=== PATIENT | male | born 1980 | race Caucasian/White ===

== ENCOUNTER → 2024-09-02 08:39 | Outpatient (BNVA) | payer BC, MEDICAID, SELFPAY | PROVIDERS: PCP Family Medicine; Visit Provider Family Medicine | DX: Z13.6 Encounter for screening for cardiovascular disorders (principal) | CPT/HCPCS: 80053; 80061; 84443; 85025 ==

== ENCOUNTER 2024-09-09 07:03 | Outpatient (CLI) | payer BC, MEDICAID, SELFPAY ==
--- NOTE | 2024-09-09 07:30 | US_ITS ---
WS: [id number] ULTRASOUND SOFT TISSUES RIGHT flank. HISTORY: cyst on right flank COMPARISON: CT 04/23/2017 TECHNIQUE: 2-D and color Doppler imaging is submitted. Palpable area along the posterior RIGHT flank at the level of the kidney. Ultrasound directed to the area indicated by the patient. There is a mixed intermediate density mass which is pretty well defined. Mass does appear encapsulated and is isoechoic to the adjacent muscles. Mass measures 7.4 x 6.8 x 4.6 cm. No significant increased vascularity. US/US soft tissue/extremity [id number] IMPRESSION: Well encapsulated mass along the posterior RIGHT flank. This is most consistent with a lipoma. Prior CT from 04/23/2017 demonstrated a lipoma posteriorly in a similar location. Maximum diameter of the lipoma at that time was 5.9 cm. Lipo ma has slightly increased in size.
== END 2024-09-09 07:04 | disposition home or self-care (01) ==
LOC: RAD 07:05
PROVIDERS: PCP Family Medicine; Visit Provider Family Medicine
DX: L72.9 Follicular cyst of the skin and subcutaneous tissue, unspecified (principal); R79.89 Other specified abnormal findings of blood chemistry; R22.2 Localized swelling, mass and lump, trunk
CPT/HCPCS: 76882; 80074; 87522

== ENCOUNTER → 2024-09-23 13:31 | Outpatient (BNVA) | payer BC, MEDICAID, SELFPAY | PROVIDERS: PCP Family Medicine; Visit Provider Family Medicine | DX: B19.20 Unspecified viral hepatitis C without hepatic coma (principal); R76.8 Other specified abnormal immunological findings in serum | CPT/HCPCS: 87522; 87806 ==

== ENCOUNTER 2024-10-09 07:55 | Outpatient (CLI) | payer BC, MEDICAID, SELFPAY ==
--- NOTE | 2024-10-09 08:15 | US_ITS ---
WS: [id number] Gallbladder and right upper quadrant ultrasound, 10/09/2024 Clinical Data: hep c, mild transaminitis Comparison: None. Findings: The gallbladder shows no sludge or stone. The wall measures 0.2 cm with no pericholecystic fluid. The common bile duct is 0.4 cm and there are no intrahepatic ductal abnormalities. Liver shows no cysts, masses or dilated intrahepatic ducts. The liver shows uniform echotexture and is enlarged to 18.4 cm. The portal vein shows hepatopetal flow. The pancreas is not obscured by overlying bowel gas and no cyst, pseudocyst, or evidence of pancreatitis is noted. Right kidney measures 9.4 cm and no cyst, masses or hydronephrosis can be seen. The aorta and inferior vena cava show no vascular abnormalities. US/US liver [id number] Impression: 1. Hepatomegaly. 2. Negative pancreas, gallbladder and right kidney.
== END 2024-10-09 07:56 | disposition home or self-care (01) ==
PROVIDERS: PCP Family Medicine; Visit Provider Family Medicine
DX: B19.20 Unspecified viral hepatitis C without hepatic coma (principal); R16.0 Hepatomegaly, not elsewhere classified
CPT/HCPCS: 76705